=== PATIENT | male | born 1950 | race Caucasian/White ===

== ENCOUNTER 2019-05-27 07:06 | Observation (INO) | payer BC ==
[2019-05-25 13:18] LABS: BASOPHILS % 0.8 % (0.0-1.0); EOSINOPHILS # (AUTO) 0.2 (0.0-0.4); EOSINOPHILS % 3.7 % (0.0-6.0); HEMATOCRIT 40.7 % (38.2-49.6); HEMOGLOBIN 13.3 g/dL (14.0-18.0); LYMPHOCYTES # (AUTO) 1.8 (1.0-3.2); LYMPHOCYTES % 35.1 % (18.0-39.1); MEAN CORPUSCULAR HEMOGLOBIN 29.2 pg (28-32); MEAN CORPUSCULAR HGB CONC 32.7 g/dL (31-35); MEAN CORPUSCULAR VOLUME 89.3 fL (81-99); MONOCYTES # (AUTO) 0.5 (0.2-0.8); MONOCYTES % 9.2 % (4.4-11.3); NEUTROPHILS # (AUTO) 2.6 (2.1-6.9); NEUTROPHILS % 50.8 % (38.7-80.0); PLATELET COUNT 156 x10e3/uL (140-360); RED BLOOD COUNT 4.56 x10e6/uL (4.3-5.7); RED CELL DISTRIBUTION WIDTH 13.9 % (11.7-14.4)
[2019-05-25 13:38] LABS: ANION GAP 12.7 mmol/L (8-16); BLOOD UREA NITROGEN 15 mg/dL (7-26); BUN/CREATININE RATIO 21 (6-25); CALCIUM 9.4 mg/dL (8.4-10.2); CARBON DIOXIDE 25 mmol/L (22-29); CHLORIDE 104 mmol/L (98-107); CREATININE, SERUM 0.72 mg/dL (0.72-1.25); EST GLOMERULAR FILTRATION RATE > 60 ML/MIN (60-); GLUCOSE 87 mg/dL (74-118); POTASSIUM 3.7 mmol/L (3.5-5.1); SODIUM 138 mmol/L (136-145)
[2019-05-25 13:44] LABS: INR 1.03
[2019-05-25 13:45] LABS: PARTIAL THROMBOPLASTIN TIME 28.7 seconds (23.8-35.5)
--- NOTE | 2019-05-25 13:47 | Diagnostic Imaging Report ---
EXAM: CHEST 2 VIEWS DATE: 05/25/2019 12:43 PM INDICATION: Cervicalgia, preoperative evaluation COMPARISON: None FINDINGS: The trachea is midline. The lungs are symmetrically expanded without evidence for focal consolidation, pneumothorax, or significant pleural effusion. The cardiac silhouette is at the upper limits of normal for size. Mediastinal contours are unremarkable. No acute osseous abnormalities identified. The soft tissues are unremarkable. IMPRESSION: No acute cardiopulmonary process identified. Signed by: Dr. Jacky Monterroso MD on 05/25/2019 1:43 PM
[~2019-05-27] VITALS: Ht 167.6 cm; Wt 88.0 kg
[~2019-05-27 07:06] MED LIST: ASPIR 8181 MG PO; ATORVASTATIN CA20 MG PO; BACITRACIN 50,000 UNIT VIAL ONE; BUPIVACAINE 0.5%/EPI 30 ML SDV INJ ONE; DOXYCYCLINE HY100 MG PO; LISINOPRIL2.5 MG PO; PLAVIX75 MG PO; THROMBIN FOR SOLN 5,000 UNIT VIAL ONE; TOPROL XL25 MG PO
--- OUTSIDE RECORDS SUMMARY | 2019-05-27 07:08 | XMS REPORT | Clinical Summary ---
Author Author [facility] Organization [facility] Address Unknown Phone Unavailable Care Team Providers Care Payroll Processor Name Role Phone Alexandra Worrell MD PCP Allergies Comments Active Allergy Reactions Severity Noted Date Sulfa (Sulfonamide Rash Low 05/20/2008 Antibiotics) Medications End Date Status Medication Sig Dispensed Refills Start Date Active doxycycline (PERIOSTAT) TK 1 T PO 4 20 MG tablet BID 7 Active ketoconazole (NIZORAL) 2 Apply to face 0 % shampoo qdaily. 6 Leave on 5 min. Then rinse out. Please dispense largest. Active urea (CARMOL) 40 % cream Apply to 0 affected 6 areas BID PRN. Please dispense largest. Active betamethasone, augmented, Apply 0 (DIPROLENE) 0.05 % lotion topically 2 (two) times a day as needed. Active lutein 20 mg tablet Take 1 tablet 0 by mouth daily. Active atorvastatin (LIPITOR) 40 Take 1 tablet 90 tablet 0 MG tablet (40 mg total) 9 by mouth daily. Additional information Patient taking differently: 40 mg oral nightly, Reported on 02/25/2019 9:40 AM Active lisinopril Take 1 tablet 90 tablet 0 (PRINIVIL,ZESTRIL) 5 mg (5 mg total) 9 tablet by mouth every morning. Active atorvastatin (LIPITOR) 40 TAKE 1 TABLET 90 tablet 0 03/01/201 MG tablet BY MOUTH 9 EVERY DAY Active furosemide (LASIX) 20 mg TAKE 1 90 tablet 0 tablet TABLET(20 MG) 9 BY MOUTH DAILY Additional information Patient taking differently: TAKE 1 TABLET(20 MG) BY MOUTH DAILY PRN, Reported on 04/07/2019 10:55 AM Active potassium chloride TAKE 1 90 tablet 0 (KLOR-CON) 10 MEQ CR TABLET(10 9 tablet MEQ) BY MOUTH DAILY Additional information Patient taking differently: TAKE 1 TABLET(10 MEQ) BY MOUTH DAILY PRN, Reported on 04/07/2019 10:55 AM Active aspirin (ECOTRIN) 81 MG Take 81 mg by 0 enteric coated tablet mouth daily. Active clobetasol (TEMOVATE) Apply 0 0.05 % cream topically 2 (two) times a day as needed. Active vit A/C/E ac/ZnOx/cupric Take 1 tablet 0 oxide (EYE VITAMIN AND by mouth MINERALS ORAL) daily. Active clopidogrel (PLAVIX) 75 TAKE 1 TABLET 90 tablet 0 mg tablet BY MOUTH 9 EVERY DAY Active metoprolol succinate XL TAKE 1 TABLET 90 tablet 0 (TOPROL-XL) 25 mg 24 hr BY MOUTH 9 tablet DAILY 02/25/2019 Discontinued vardenafil (LEVITRA) 20 Take 20 mg by 0 MG tablet mouth. 6 04/07/2019 Discontinued ASPIRIN ORAL Take 81 mg by 0 mouth. 08/10/2018 Discontinued (Reorder) clopidogrel (PLAVIX) 75 Take 1 tablet 90 tablet 3 mg tablet (75 mg total) 7 by mouth daily. 04/07/2019 Discontinued FLUZONE HIGH-DOSE ADM 0.5ML IM 0 2017-18, PF, 180 mcg/0.5 UTD 7 mL syringe vaccine 02/25/2019 Discontinued meloxicam (MOBIC) 15 mg Take 15 mg by 0 tablet mouth daily. 04/07/2019 Discontinued fluocinolone-skin Apply 0 [id number] 0.01 % kit topically. 08/31/2018 Discontinued (Reorder) atorvastatin (LIPITOR) 40 TK 1 T PO QD 90 tablet 3 MG tablet 7 08/27/2018 Discontinued (Reorder) lisinopril TK 1 T PO QAM 90 tablet 3 (PRINIVIL,ZESTRIL) 5 mg 7 tablet 08/14/2018 Discontinued (Reorder) metoprolol succinate XL TK 1 T PO D 90 tablet 3 (TOPROL-XL) 25 mg 24 hr 7 tablet 11/09/2018 Discontinued (Reorder) clopidogrel (PLAVIX) 75 TAKE 1 90 tablet 0 mg tablet TABLET(75 MG) 8 BY MOUTH DAILY 11/11/2018 Discontinued (Reorder) metoprolol succinate XL TAKE 1 TABLET 90 tablet 0 (TOPROL-XL) 25 mg 24 hr BY MOUTH 8 tablet DAILY 11/28/2018 Discontinued (Reorder) lisinopril TAKE 1 TABLET 90 tablet 0 (PRINIVIL,ZESTRIL) 5 mg BY MOUTH 8 tablet EVERY MORNING 11/28/2018 Discontinued (Reorder) atorvastatin (LIPITOR) 40 TAKE 1 TABLET 90 tablet 0 MG tablet BY MOUTH 8 EVERY DAY 02/06/2019 Discontinued (Reorder) clopidogrel (PLAVIX) 75 TAKE 1 90 tablet 0 mg tablet TABLET(75 MG) 9 BY MOUTH DAILY 02/06/2019 Discontinued (Reorder) metoprolol succinate XL TAKE 1 TABLET 90 tablet 0 (TOPROL-XL) 25 mg 24 hr BY MOUTH 9 tablet DAILY 11/30/2018 Discontinued (Reorder) lisinopril TAKE 1 TABLET 90 tablet 0 (PRINIVIL,ZESTRIL) 5 mg BY MOUTH 9 tablet EVERY MORNING 11/30/2018 Discontinued (Reorder) atorvastatin (LIPITOR) 40 TAKE 1 TABLET 90 tablet 0 201 MG tablet BY MOUTH 9 EVERY DAY 05/13/2019 Discontinued (Reorder) clopidogrel (PLAVIX) 75 TAKE 1 90 tablet 0 mg tablet TABLET(75 MG) 9 BY MOUTH DAILY 05/13/2019 Discontinued (Reorder) metoprolol succinate XL TAKE 1 TABLET 90 tablet 0 (TOPROL-XL) 25 mg 24 hr BY MOUTH 9 tablet DAILY 03/26/2019 Discontinued (Reorder) furosemide (LASIX) 20 mg Take 1 tablet 30 tablet 0 tablet (20 mg total) 9 by mouth daily. 03/26/2019 Discontinued (Reorder) potassium chloride Take 1 tablet 30 tablet 0 (KLOR-CON) 10 MEQ CR (10 mEq 9 tablet total) by mouth daily. 04/07/2019 Discontinued lisinopril TAKE 1 TABLET 90 tablet 0 (PRINIVIL,ZESTRIL) 5 mg BY MOUTH 9 tablet EVERY MORNING Active Problems Problem Noted Date H/O acute myocardial infarction 02/09/2019 Plantar fasciitis 09/03/2017 Overview: Patient has that flairs on his L foot. Saw a dental insurance biller--got injections, NSAIDS, special ointments including lidocaine, until it's under control Wears an insert. L ast Assessment & Plan: Continue current care Given some stretches to try as he tries to get back to exercise. Prostate cancer screening 09/03/2017 Stented coronary artery 08/12/2017 Essential hypertension 06/20/2015 Overview: Never really had high blood pressure Patient has gained about 20 lbs lately due to not exercising with plantar fasciitis. L ast Assessment & Plan: Hypertension is at goal. Continue current treatment regimen. Blood pressure will be reassessed at the next regular appointment. Macular pucker 05/04/2015 ROBBIN (obstructive sleep apnea) 08/26/2014 Overview: Uses CPAP Plans to make an appointment with a pulmonary doctor in [place] Posterior vitreous detachment 08/09/2014 IFG (impaired fasting glucose) 08/09/2014 Overview: Last a1c was 5.7 L ast Assessment & Plan: Recheck labs today Horseshoe tear of retina 07/26/2014 Macular degeneration, dry 07/01/2014 Nuclear cataract 07/01/2014 Corporo-venous occlusive erectile dysfunction 08/12/2011 Overview: Patient is having problems with levitra--now is not working. 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 Typically under control On betamethasone, ketoconazole shampoo prn. Urea as well CAD (coronary artery disease), morongo coronary artery 06/26/2010 Overview: Overview: S/P CA with 2.5 mm BMS to OM in 2000. Pure hypertriglyceridemia 06/26/2010 Bilateral carpal tunnel syndrome Resolved Problems Problem Noted Date Resolved Date H/O acute myocardial infarction 03/29/2019 04/07/2019 SOB (shortness of breath) 02/09/2019 04/07/2019 Coronary artery disease involving morongo heart with angina pectoris 02/09/2019 04/07/2019 Overview: Added automatically from request for surgery [id number] Encounters Care Team Description Date Type Specialty Alexandra Worrell MD 05/20/2019 Telephone Internal Medicine Miles Martinez MD Med Refill 05/13/2019 Refill Cardiology Alexandra Worrell MD 05/11/2019 Telephone Internal Medicine Ata Stewart MA 04/29/2019 Telephone Internal Medicine Ata Stewart MA Osteoarthritis of spine with radiculopathy, cervical region (Primary Dx); Neck pain; Numbness and tingling 04/29/2019 Orders Only Internal Medicine Ata Stewart MA 04/20/2019 Orders Only Internal Medicine Alexandra Worrell MD Essential hypertension; Prostate cancer screening; IFG (impaired fasting glucose); Pure hypertriglyceridemia 04/07/2019 Lab Lab Alexandra Worrell MD Essential hypertension (Primary Dx); IFG (impaired fasting glucose); ROBBIN (obstructive sleep apnea); Coronary artery disease involving morongo coronary artery of morongo heart without angina pectoris; Prostate cancer screening; Pure hypertriglyceridemia; Numbness and tingling; Neck pain 04/07/2019 Office Visit Internal Medicine Miles Martinez MD Coronary artery disease involving morongo coronary artery of morongo heart without angina pectoris (Primary Dx); Stented coronary artery; H/O acute myocardial infarction 03/29/2019 Office Visit Cardiology Miles Martinez MD Med Refill 03/26/2019 Refill Cardiology Miles Martinez MD Med Refill 02/27/2019 Refill Cardiology Nae Pena MA Med Refill 02/26/2019 Refill Cardiology Nae Pena MA Med Refill 02/26/2019 Refill Cardiology Alexandra Worrell MD 02/26/2019 Telephone Family Medicine Miles Martinez MD Selective coronary angiography [07526 (CPT)] 02/25/2019 Surgery Procedural Cardiology Miles Martinez MD Coronary artery disease involving morongo heart with angina pectoris, unspecified vessel or lesion type (HCC); SOB (shortness of breath) 02/25/2019 Hospital Procedural Cardiology Encounter Miles Martinez MD Coronary artery disease involving morongo heart with angina pectoris, unspecified vessel or lesion type (HCC); SOB (shortness of breath) 02/23/2019 Lab Lab Miles Martinez MD Coronary artery disease involving morongo heart with angina pectoris, unspecified vessel or lesion type (HCC); SOB (shortness of breath) 02/17/2019 Lab Lab Miles Martinez MD Coronary artery disease involving morongo coronary artery of morongo heart without angina pectoris (Primary Dx); Essential hypertension; SOB (shortness of breath); Stented coronary artery; H/O acute myocardial infarction 02/09/2019 Office Visit Cardiology Nae Pena MA Coronary artery disease involving morongo heart with angina pectoris, unspecified vessel or lesion type (HCC) (Primary Dx); SOB (shortness of breath) 02/09/2019 Orders Only Cardiology Miles Martinez MD Med Refill 02/06/2019 Refill Cardiology Nae Pena MA Med Refill 11/30/2018 Refill Cardiology Miles Martinez MD Med Refill 11/28/2018 Refill Cardiology Miles Matrinez MD Med Refill 11/11/2018 Refill Cardiology Miles Martinez MD Med Refill 11/09/2018 Refill Cardiology Miles Martinez MD Med Refill 08/31/2018 Refill Cardiology Miles Martinez MD Med Refill 08/27/2018 Refill Cardiology Miles Martinez MD Med Refill 08/14/2018 Refill Cardiology Miles Martinez MD Med Refill 08/10/2018 Refill Cardiology after 05/26/2018 Immunizations Name Administration Dates Next Due FLUZONE HIGH-DOSE PF 08/13/2017, 06/20/2015, 06/29/2014 INFLUENZA QUAD 06/27/2016, 06/12/2011 Pneumococcal Conjugate 06/20/2015 13-Valent Pneumococcal 08/17/2013 Polysaccharide Tdap 05/21/2008 Zoster 08/09/2014 Family History Medical History Relation Name Comments Heart attack Father Leukemia Father Heart attack Maternal Grandfather Heart attack Paternal Aunt Kidney failure Paternal Aunt Heart attack Paternal Grandfather Heart attack Paternal Uncle Heart attack Paternal Uncle Kidney failure Sister Relation Name Status Comments Father Maternal Grandfather Mother Paternal Aunt Paternal Aunt Paternal Grandfather Paternal Uncle Paternal Uncle Sister Social History Date Tobacco Use Types Packs/Day Years Used Quit: 09/29/1993 Former Smoker Cigarettes 1.5 41 Smokeless Tobacco: Never Used Tobacco Cessation: Counseling Given: No Drinks/Week oz/Week Comments Alcohol Use beer occasionally, mixed drink occasionally; maybe 1-2 times month No Sex Assigned at Date Recorded Male 04/13/2019 8:47 PM CDT Industry Job Start Date Occupation Not on file Not on file Not on file Travel End Travel History Travel Start No recent travel history available. Last Filed Vital Signs Reading Time Taken Comments Vital Sign 124/64 04/07/2019 10:49 AM CDT Blood Pressure 49 04/07/2019 10:49 AM CDT Pulse 36.6 C (97.9 F) 04/07/2019 10:49 AM CDT Temperature 16 02/25/2019 6:00 PM CDT Respiratory Rate 97% 04/07/2019 10:49 AM CDT Oxygen Saturation - - Inhaled Oxygen Concentration 90.7 kg (200 lb) 05/06/2019 1:24 PM CDT Weight 167.6 cm (5' 6") 05/06/2019 1:24 PM CDT Height 32.28 05/06/2019 1:24 PM CDT Body Mass Index Plan of Treatment Care Team Description Date Type Specialty Miles Martinez MD [address] [address] 09/13/2019 Office Visit Cardiology Health Maintenance Due Date Last Done Comments SHINGLES VACCINES (#1) 1998 INFLUENZA VACCINE 04/29/2019 08/13/2017, 06/27/2016, 06/20/2015, Additional history exists COLONOSCOPY SCREENING 08/17/2025 08/17/2015 65+ PNEUMOCOCCAL VACCINE Completed 06/20/2015, 08/17/2013 Procedures Comments Procedure Name Priority Date/Time Associated Diagnosis MRI CERVICAL SPINE W WO Routine 05/06/2019 Osteoarthritis of spine CONTRAST 1:54 PM CDT with radiculopathy, cervical region Neck pain Numbness and tingling EMG Routine 04/14/2019 Numbness and tingling 1:12 PM CDT XR CERVICAL SPINE Routine 04/07/2019 Numbness and tingling COMPLETE 2:03 PM CDT Neck pain TSH REFLEX TO T4F Routine 04/07/2019 Essential hypertension 12:15 PM CDT LIPID PANEL Routine 04/07/2019 Pure hypertriglyceridemia 12:15 PM CDT HEMOGLOBIN A1C Routine 04/07/2019 IFG (impaired fasting 12:15 PM CDT glucose) PROSTATE SPECIFIC ANTIGEN Routine 04/07/2019 Prostate cancer screening 12:15 PM CDT CBC WITH PLATELET AND Routine 04/07/2019 Essential hypertension DIFFERENTIAL 12:15 PM CDT CREATININE LEVEL Routine 04/07/2019 Essential hypertension 12:15 PM CDT CV SELECTIVE CORONARY Routine 02/25/2019 Coronary artery disease ANGIOGRAPHY 3:30 PM CDT involving morongo heart with angina pectoris, unspecified vessel or lesion type (HCC) SOB (shortness of breath) CBC WITH PLATELET AND Routine 02/23/2019 Coronary artery disease DIFFERENTIAL 4:56 PM CDT involving morongo heart with angina pectoris, unspecified vessel or lesion type (HCC) SOB (shortness of breath) PROTHROMBIN TIME WITH INR Routine 02/23/2019 Coronary artery disease 4:56 PM CDT involving morongo heart with angina pectoris, unspecified vessel or lesion type (HCC) SOB (shortness of breath) COMPREHENSIVE METABOLIC Routine 02/23/2019 Coronary artery disease PANEL 4:56 PM CDT involving morongo heart with angina pectoris, unspecified vessel or lesion type (HCC) SOB (shortness of breath) ECHOCARDIOGRAM 2D Routine 02/17/2019 Coronary artery disease COMPLETE W MMODE SPECTRAL 4:59 PM CDT involving morongo coronary COLOR DOPPLER (12406) artery of morongo heart without angina pectoris SOB (shortness of breath) ECG 12-LEAD Routine 02/09/2019 Coronary artery disease 8:46 AM CDT involving morongo coronary artery of morongo heart without angina pectoris Essential hypertension SOB (shortness of breath) after 05/26/2018 Results * MRI Cervical Spine W Wo Contrast (05/06/2019 1:54 PM CDT) Specimen Narrative Performed At [facility] EXAMINATION: MRI CERVICAL SPINE W WO CONTRAST CLINICAL HISTORY: M47.22 Other spondylosis with radiculopathycervical region, M54.2 Cervicalgia, neck painnumbness tingling COMPARISON:C-spine radiographs 04/07/2019. TECHNIQUE: Multiplanar multisequence MRI examination was performed of the cervical spine with and without IV contrast. FINDINGS: There is straightening of the cervical spine, however no subluxation. No abnormal marrow edema. Vertebral body and intervertebral disc heights are preserved. No developmental canal narrowing. No suspicious osseous lesion. No degenerative marrow changes. The cervicomedullary junction is normal in appearance. No spinal cord signal abnormality. No pathologic enhancement identified to suggest active demyelination. No prevertebral edema or neck mass identified. No cervical lymphadenopathy identified. Major vascular flow voids are present. Left vertebral artery is dominant and right vertebral artery is markedly diminutive in caliber. Axial images through the disc spaces demonstrate the following: C1-C2: No significant spinal canal stenosis. C2-C3: No significant posterior disc disease, spinal canal, subarticular zone, or neural foraminal stenosis. C3-C4: Mild right neural foraminal narrowing secondary to degenerative uncovertebral hypertrophy. No significant posterior disc disease, spinal canal, subarticular zone, or left neural foraminal stenosis. C4-C5: No significant posterior disc disease, spinal canal, subarticular zone, or neural foraminal stenosis. C5-C6: Marked left neural foraminal stenosis secondary to degenerative uncovertebral and facet arthrosis, image 26 of series 6. No significant posterior disc disease, spinal canal, subarticular zone, or right neural foraminal stenosis. C6-C7: Mild intervertebral disc height loss with circumflex ventral disc bulge which indents the ventral thecal sac and results in moderate to marked bilateral neural foraminal stenosis, image 30 of series 6. Central canal is patent. C7-T1: No significant posterior disc disease, spinal canal, subarticular zone, or neural foraminal stenosis. IMPRESSION: Multifocal neural foraminal stenosis as detailed above, however no significant spinal canal stenosis identified. [facility]-[id number] Procedure Note Hm Interface, Radiology Results - 05/06/2019 3:09 PM CDT EXAMINATION: MRI CERVICAL SPINE W WO CONTRAST CLINICAL HISTORY: M47.22 Other spondylosis with radiculopathy cervical region, M54.2 Cervicalgia, neck pain numbness tingling COMPARISON: C-spine radiographs 04/07/2019. TECHNIQUE: Multiplanar multisequence MRI examination was performed of the cervical spine with and without IV contrast. FINDINGS: There is straightening of the cervical spine, however no subluxation. No abnormal marrow edema. Vertebral body and intervertebral disc heights are preserved. No developmental canal narrowing. No suspicious osseous lesion. No degenerative marrow changes. The cervicomedullary junction is normal in appearance. No spinal cord signal abnormality. No pathologic enhancement identified to suggest active demyelination. No prevertebral edema or neck mass identified. No cervical lymphadenopathy identified. Major vascular flow voids are present. Left vertebral artery is dominant and right vertebral artery is markedly diminutive in caliber. Axial images through the disc spaces demonstrate the following: C1-C2: No significant spinal canal stenosis. C2-C3: No significant posterior disc disease, spinal canal, subarticular zone, or neural foraminal stenosis. C3-C4: Mild right neural foraminal narrowing secondary to degenerative uncovertebral hypertrophy. No significant posterior disc disease, spinal canal, subarticular zone, or left neural foraminal stenosis. C4-C5: No significant posterior disc disease, spinal canal, subarticular zone, or neural foraminal stenosis. C5-C6: Marked left neural foraminal stenosis secondary to degenerative uncovertebral and facet arthrosis, image 26 of series 6. No significant posterior disc disease, spinal canal, subarticular zone, or right neural foraminal stenosis. C6-C7: Mild intervertebral disc height loss with circumflex ventral disc bulge which indents the ventral thecal sac and results in moderate to marked bilateral neural foraminal stenosis, image 30 of series 6. Central canal is patent. C7-T1: No significant posterior disc disease, spinal canal, subarticular zone, or neural foraminal stenosis. IMPRESSION: Multifocal neural foraminal stenosis as detailed above, however no significant spinal canal stenosis identified. [facility]-[id number] Performing Organization Address City/State/Zipcode Phone Number [facility] [address] [place] [address] * EMG general request (04/14/2019 1:12 PM CDT) Impressions Performed At Patient has chronic carpal tunnel complaints bilaterally and comes in for an EMG study of both arms 1) Motor conductions are normal.Mild decreased compound motor action potential of the right median nerve.Mild slowing of the left median conduction. 2) F Wave responses are normal except upper limits for the left median response and right ulnar response 3) Sensory responses show severe delay of right median palmar latency and moderate on the left.Marked decreased sensory nerve action potentials bilaterally for the median nerve.Absent left ulnar distal latency. 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 Mikaela Akbar M.D. [facility] Department of Neurology [facility] [address] [place], [place] [id number] Office: [phone] Narrative Performed At NERVE CONDUCTION AND ELECTROMYOGRAPHY REPORT [facility]-[address]th Floor; [place], [place] [address]; Name: Maurizio Mosquera Date of Procedure: 04/14/19 Sex: male Date of :1950 Referring Physician: MD Stacie Ht: 5 foot 6wt: 200temp: 34/34 Nerve Conduction(Latencies in msec, Amplitudes uV, Distance cm, Velocity M/Sec) Right Motor Nerves Dist. Lat. Prox lat. D. amp. P. Amp.Dist. Velocity Right Median3.88.57.8 7.323 50 Right Ulnar (below elb) 2.76.47.8 6.319.5 52 Right Ulnar (across elb) 9.1 6.312.5 47 Right Radial2.37.04.8 4.023 48 Right Median F Wave 31.1 Right Ulnar F Wave 32.8 Right Sensory Nerves Dist. Lat. Prox lat. Dist. amp. Prox Amp. Distance Velocity Right Median Palmar 3.2* 10 8.0 Right Median Digital 4.2 7 13.0 Right Ulnar2.8 11 11.0 Right Super. Radial 2.8 17 10.0 Left Motor Nerves Dist. Lat. Prox lat. D. amp. P. Amp.Dist. Velocity Left Median3.88.38.5 5.821.4 47 Left Ulnar (below elb) 2.95.36.8 612.8 55 Left Ulnar (across elb) 7.5 6.312 53 Left Radial3.37.46.3 5.925 60 Left Median F Wave 32.3 Left Ulnar F Wave 30.7 Left Sensory Nerves Dist. Lat. Prox lat. Dist. amp. Prox Amp. Distance Velocity Left Median Palmar 2.6* 6 8.0 Left Median Digital 3.5 9 13.0 Left [id number] Left Super. Radial 2.3 27 10.0 Electromyography (Motor Unit in mV; H=High; L=Low; P=Polyphasic; NS=Non-specific) Right ArmFibs. Pos. Waves Fasc. PolyphasiaMotor UnitsRecruitment Deltoid wnl wnlwnl wnlwnlwnl Biceps wnl wnlwnl wnlwnlwnl Triceps wnl wnlwnl wnlwnlwnl Brachioradialis wnl wnlwnl wnlwnlwnl lst D. Interosseous wnl wnlwnl wnlwnlwnl Abd. Pollicus b. wnl wnlwnl wnlwnlwnl Left ArmFibs. Pos. Waves Fasc. PolyphasiaMotor UnitsRecruitment Deltoid wnl wnlwnl wnlwnlwnl Biceps wnl wnlwnl wnlwnlwnl Triceps wnl wnlwnl wnlwnlwnl Brachioradialis wnl wnlwnl wnlwnlwnl lst D. Interosseous wnl wnlwnl wnlwnlwnl * XR Cervical Spine Complete (04/07/2019 2:03 PM CDT) Specimen Narrative Performed At EXAMINATION:XR CERVICAL SPINE COMPLETE [facility] CLINICAL HISTORY:R20.0 Anesthesia of skin, R20.2 Paresthesia of skin, neck pain with radicular symptomshand numbness COMPARISON:None. IMPRESSION: 5 views of the cervical spine were obtained. Straightening of the cervical spine. Convexity of the cervical thoracic junction to the left. Mild to moderate disc space narrowing and endplate degenerative changes at C6-7. No displaced fractures, aggressive bone lesions or prevertebral soft tissue swelling. Bilateral bony foraminal narrowing on the oblique views at C5-6 and C6-7. [facility]-[id number] Procedure Note Hm Interface, Radiology Results Incoming - 04/07/2019 2:17 PM CDT EXAMINATION: XR CERVICAL SPINE COMPLETE CLINICAL HISTORY: R20.0 Anesthesia of skin, R20.2 Paresthesia of skin, neck pain with radicular symptoms hand numbness COMPARISON: None. IMPRESSION: 5 views of the cervical spine were obtained. Straightening of the cervical spine. Convexity of the cervical thoracic junction to the left. Mild to moderate disc space narrowing and endplate degenerative changes at C6-7. No displaced fractures, aggressive bone lesions or prevertebral soft tissue swelling. Bilateral bony foraminal narrowing on the oblique views at C5-6 and C6-7. [facility]-[id number] Performing Organization Address City/State/Zipcode Phone Number [facility] [address] [place] [address] * TSH reflex to T4 (04/07/2019 12:15 PM CDT) TSH reflex to 1.60 0.40 - 4.50 mIU/L [employer] [place] Specimen Blood Resulting Agency Comment Performing Organization Information: Site ID: [id number] Address: [address] [place] [id number] Director: Mikaela Lopez Performing Organization Address City/State/[facility] Phone Number [employer] [place] [phone] * CBC with platelet and differential (04/07/2019 12:15 PM CDT) Only the most recent of 2 results within the time period is included. [facility] WBC 5.4 3.8 - 10.8 [facility] [employer] RBC 4.58 4.20 - 5.80 [facility] Million/uL [facility] [place] HGB 13.3 13.2 - 17.1 g/dL [facility] [place] HCT 40.8 38.5 - 50.0 % [facility] [place] MCV 89.1 80.0 - 100.0 fL [facility] [place] MCH 29.0 27.0 - 33.0 pg [facility] [place] MCHC 32.6 32.0 - 36.0 g/dL [employer] [place] RDW 13.5 11.0 - 15.0 % [employer] [place] Platelet count 163 140 - 400 [facility] Thousand/uL [facility] MPV 10.9 7.5 - 12.5 fL [employer] [place] Neutrophils, 3,310 1,500 - 7,800 [facility] absolute cells/uL [facility] [place] Lymphocytes, 1,388 850 - 3,900 cells/uL [facility] absolute [facility] [place] Monocytes, 464 200 - 950 cells/uL [facility] absolute [facility] [place] Eosinophils, 200 15 - 500 cells/uL [facility] absolute [facility] [place] Basophils, 38 0 - 200 cells/uL [facility] absolute [facility] [place] Neutrophils 61.3 % [facility] [place] Lymphocytes 25.7 % [facility] [place] Monocytes 8.6 % [facility] [place] Eosinophils 3.7 % [facility] [place] Basophils + RC 0.7 % [facility] [place] Specimen Blood Resulting Agency Comment Performing Organization Information: Site ID: A Name: [facility] Address: [address] [place] [address] Director: Mikaela Lopez Performing Organization Address [facility] Phone Number [facility] [place] [address] * Prostate specific antigen (04/07/2019 12:15 PM CDT) Pathologist [facility] [place] PSA 1.8 < OR=4.0 ng/mL [facility] Comment: DIAGNOSTICS The total PSA value from this [place] assay system is standardized against the WHO standard. The test result will be approximately 20% lower when compared to the equimolar-standardized total PSA (Lillian Bashir). Comparison of serial PSA results should be interpreted with this fact in mind. This test was performed using the Siemens chemiluminescent method. Values obtained from different assay methods cannot be used interchangeably. PSA levels, regardless of value, should not be interpreted as absolute evidence of the presence or absence of disease. Specimen Blood Resulting Agency Comment Performing Organization Information: Site ID: RGA Name: [facility] Address: [address] [place] [phone] Director: Mikaela Lopez Performing Organization Address [facility] Phone Number [facility] [place] [address] * Hemoglobin A1c (04/07/2019 12:15 PM CDT) Pathologist [facility] [place] Hemoglobin A1C 5.5 <5.7 % of total Hgb [facility] Comment: DIAGNOSTICS For the purpose of screening [place] for the presence of diabetes: <5.7% Consistent with the absence of diabetes 5.7-6.4%Consistent with increased risk for diabetes (predi abetes) > or=6.5%Consistent with diabetes This assay result is consistent with a decreased risk of diabetes. Currently, no consensus exists regarding use of hemoglobin A1c for diagnosis of diabetes in children. According to [place] Diabetes Association (ADA) guidelines, hemoglobin A1c <7.0% represents optimal control in non- diabetic patients. Different metrics may apply to specific patient populations. Standards of Medical Care in Diabetes(ADA). Specimen Blood Resulting Agency Comment Performing Organization Information: Site ID: [facility] Name: [facility] Address: [address] [place] [phone] Director: Mikaela Lopez Performing Organization Address City/[facility] [place] [place] [address] * Creatinine level (04/07/2019 12:15 PM CDT) Creatinine 0.80 0.70 - 1.18 mg/dL [facility] Comment: DIAGNOSTICS For patients >49 years of age, [place] the reference limit for Creatinine is approximately 13% higher for people identified as -Indian. EGFR Non-Afr. 91 > OR=60 [facility] Indian mL/min/1.73m2 [facility] EGFR 105 > OR=60 [facility] Indian mL/min/1.73m2 [facility] Specimen Blood Resulting Agency Comment Performing Organization Information: Site ID: [facility] Name: [facility] Address: [address] [place] [id number] Director: Mikaela Lopez Performing Organization Address [facility] [place] [address] * Lipid panel (04/07/2019 12:15 PM CDT) Cholesterol, 126 <200 mg/dL [facility] total [facility] HDL cholesterol 34 (L) >40 mg/dL [facility] [place] Triglycerides 139 <150 mg/dL [facility] LDL cholesterol 70 mg/dL (calc) [facility] calculated Comment: DIAGNOSTICS Reference range: <100 [place] Desirable range <100 mg/dL for primary prevention; <70 mg/dL for patients with CHD or diabetic patients with > or=2 CHD risk factors. LDL-C is now calculated using the Mabel calculation, which is a validated novel method providing better accuracy than the Friedewald equation in the estimation of LDL-C. Yovani DAVID et al. ARMANDO. 2013;310(19): 9762-3839 (http://education.Mediamind.Netsonda Research/faq/SIE192) Cholesterol/HDL 3.7 <5.0 (calc) [employer] [place] Non-HDL 92 <130 mg/dL (calc) [facility] cholesterol Comment: DIAGNOSTICS For patients with diabetes [place] plus 1 major ASCVD risk factor, treating to a non-HDL-C goal of <100 mg/dL (LDL-C of <70 mg/dL) is considered a therapeutic option. Specimen Blood Resulting Agency Comment Performing Organization Information: Site ID: RGA Name: [facility] Address: [address] [place] [phone] Director: Mikaela Lopez Performing Organization Address City/State/[facility] Phone Number [employer] [place] [phone] [place] [address] * Cv lab rn procedure (02/25/2019 3:30 PM CDT) Specimen Narrative Performed At [facility] Attending: Dr. Miles Martinez Fellow: Dr. Gage Hurt EQUIPMENT/ANTICOAGULATION: Right Common Femoral Artery 4Fr Arterial Sheath JL4 and 3DRC Diagnostic Catheter PROCEDURAL DETAILS: Moderate conscious sedation was administered from 3:16pm to 3:30pm for a total of 14min.The patient s right groin was prepped and draped in sterile fashion. The site was anesthetized with lidocaine.The right [employer] SCIENTIST was cannulated with a needle, and a 4Fr arterial sheath was placed over the wire into the femoral artery. JL4 and then 3DRC diagnostic catheters were introduced into the sheath and appropriate angiographic views were obtained of the morongo left and right coronary arteries.The diagnostic catheter was then removed and the sheath was capped and flushed. HEMOSTASIS: Manual Pressure PLAN: 1. Continue ASA 81mg daily 2. Continue cardiomyopathy medications (ACEi/BB) 3. Continue cardiac medical therapy and aggressive risk factor modification 4. Starting lasix 20mg PO qD and KCl 10 mEq PO qD Performing Organization Address City/State/Zipcode Phone Number [facility] [address] [place] [address] * Prothrombin time with INR (02/23/2019 4:56 PM CDT) INR 1.1 [facility] Comment: DIAGNOSTICS Reference [place] Range 0.9-1.1 Moderate-intensity Warfarin Therapy 2.0-3.0 Higher-intensity Warfarin Therapy 3.0-4.0 Prothrombin 11.3 9.0 - 11.5 sec [facility] time Comment: DIAGNOSTICS For more information on this [place] test, go to: http://education.iLumen.com/faq/JDU153 Specimen Blood Resulting Agency Comment Performing Organization Information: Site ID: RGA Name: [facility] Address: [address] [place] [phone] Director: Mikaela Lopez Performing Organization Address City/State/Zipcode Phone Number [facility] [employer] [place] [address] [place] [phone] * Comprehensive metabolic panel (02/23/2019 4:56 PM CDT) [facility] Glucose 82 65 - 99 mg/dL [facility] Comment: DIAGNOSTICS Fasting [place] reference interval BUN, whole 17 7 - 25 mg/dL [facility] blood [facility] [place] Creatinine 0.92 0.70 - 1.18 mg/dL [facility] Comment: DIAGNOSTICS For patients >49 years of age, [place] the reference limit for Creatinine is approximately 13% higher for people identified as -Indian. EGFR Non-Afr. 84 > OR=60 [facility] Indian mL/min/1.73m2 [facility] [place] EGFR 97 > OR=60 [facility] Indian mL/min/1.73m2 [facility] [place] BUN/creatinine NOT APPLICABLE 6 - 22 (calc) [facility] ratio [facility] [place] Sodium 141 135 - 146 mmol/L [facility] [place] Potassium 4.5 3.5 - 5.3 mmol/L [facility] [place] Chloride 106 98 - 110 mmol/L [facility] [place] CO2 28 20 - 32 mmol/L [facility] [place] Calcium 9.1 8.6 - 10.3 mg/dL [facility] [place] Protein 6.8 6.1 - 8.1 g/dL [facility] [place] Albumin, S 4.4 3.6 - 5.1 g/dL [facility] [place] Globulin, total 2.4 1.9 - 3.7 g/dL [facility] (calc) [facility]NOST[facility] [place] Albumin/globuli 1.8 1.0 - 2.5 (calc) [facility] n ratio [facility] [place] Total bilirubin 0.5 0.2 - 1.2 mg/dL [facility] [place] Alkaline 51 40 - 115 U/L [facility] phosphatase [facility] [place] AST 20 10 - 35 U/L [facility] [place] ALT 23 9 - 46 U/L [employer] [place] Specimen Blood Resulting Agency Comment Performing Organization Information: Site ID: RGA Name: [facility] Address: [address] [place] [address] Director: Mikaela Lopez Performing Organization Address City/State/Zipcode Phone Number [facility]USIE WIS[facility] [place] [address] [place], [place] [phone] * Echocardiogram complete w contrast and 3D if needed (02/17/2019 4:59 PM CDT) Specimen Narrative Performed At [facility] Ech[facility] Report Pat.Name:MAURIZIO MOSQUERA Pat.ID:[id number] St.Date: 02/17/2019 Refer.MD:MILES MARTINEZ MD Exam Time: 4:07:00 PMStudy Type:Routine Echo Height:66inWeight:200lb BSA: 2 o9MXIZvw:1950,68Y Sex: MALEBP:139/59 HR:55 bpm Sonogrphr: PATRICIA Nova FASE Pat. Stat.:OutpatientRoom:[place] Study Status:Final Echo Event ID:[id number] Order ID:[id number] Reason for Study:SOB, suspected cardiac etiology Procedures:2D Echo, Colorflow Doppler Race:C SUMMARY: LV size is qqrcnvoc-pz-rjfplkww enlarged. Overall wall motion is mildly hypokinetic. EF=47%. Mild mitral regurgitation. Diastolic dysfunction Grade I (Mild): Impaired relaxation with normal LV filling pressures. Estimated PA systolic pressure is 32 mmHg, assuming a mean RAP of 5 mmHg. FINDINGS: LV: LV size is dtbwuxlp-aj-tfauakdg enlarged. LV EF is mildly depressed.Overall wall motion is mildly hypokinetic. EF= 47%. RV: RV size is normal. RV systolic function is normal. LA: LA volume is mildly enlarged. RA: RA size is normal. AO: Aortic root diameter is normal. TIKA: No pericardial effusion. AV: No structural AV abnormalities noted. MV: No structural MV abnormalities noted. Mild mitral regurgitation. PV: No structural PV abnormalities noted. TV: No structural TV abnormalities noted. Mild tricuspid regurgitation Cota: Diastolic dysfunction Grade I (Mild): Impaired relaxation withnormal LV filling pressures. Other:Estimated PA systolic pressure is 32 mmHg, assuming a mean RAPof 5 mmHg. MEASUREMENTS: 2D Parasternal [place] LVOT 2.4 cmLA Ds4.8 cm LVIDd6.6 cmIndex3.3 cm/m Ao An2.4 cm LVIDs5.1 cmAo Rtd 4 cm Index2 cm/m LV%fs 22.9 % LV Hslh281.7 g(122-174) IVSd 1.1 cmRWT0.2 LVPWd0.7 cm LV EF SinglePlane LV Ad 48.7 cm2(9.5-22.3) XNADQ548.6 ml Index56.3 ml/m PWRYJ267.8 ml (65-193) Zobrg039.4 ml/m LV SV 98.2 ml LV As 31.9 cm2(4-11.6) LV EF 46.6 %(63-77) LA Sng Plane LA Area 22.7 cm2(8.8-23.4) LA Vol72.5 ml Index36.2 ml/m LA LngAx 6 cm DOPPLER LVOT For Flow LVOT Area4.5 cm2 LVOT SV 89.7 ml LVOTpkVel 84.6 cm/sHR48.7 bpm LVOTpkPG 2.9 mmHgLVOT CO4.4 l/min LVOTmnPG 1.6 mmHgLVOT CI2.2 l/m/m2 LVOT TVI19.8 cm Signed 02/18/2019 05:59 PM Cirilo Klein M.D. Procedure Note Interface, Radiology Results In - 02/18/2019 5:59 PM CDT [facility] Echocardiography Report Pat.Name: MAURIZIO MOSQUERA Pat.ID: [id number] St.Date: 02/17/2019 Refer.MD: MILES MARTINEZ MD Exam Time: 4:07:00 PM Study Type:Routine Echo Height: 66in Weight: 200lb BSA: 2 m2 Age: 10 1950,68Y Sex: MALE BP: 139/59 HR: 55 bpm Sonogrphr: PATRICIA Nova FASE Pat. Stat.:Outpatient Room: [place] Study Status:Final Echo Event ID:[id number] Order ID: [id number] Reason for Study:SOB, suspected cardiac etiology Procedures:2D Echo, Colorflow Doppler Race: C SUMMARY: LV size is xvkfwnra-sn-wninmgll enlarged. Overall wall motion is mildly hypokinetic. EF=47%. Mild mitral regurgitation. Diastolic dysfunction Grade I (Mild): Impaired relaxation with normal LV filling pressures. Estimated PA systolic pressure is 32 mmHg, assuming a mean RAP of 5 mmHg. FINDINGS: LV: LV size is hgdcvthr-ls-ozkiyceq enlarged. LV EF is mildly depressed. Overall wall motion is mildly hypokinetic. EF= 47%. RV: RV size is normal. RV systolic function is normal. LA: LA volume is mildly enlarged. RA: RA size is normal. AO: Aortic root diameter is normal. TIKA: No pericardial effusion. AV: No structural AV abnormalities noted. MV: No structural MV abnormalities noted. Mild mitral regurgitation. PV: No structural PV abnormalities noted. TV: No structural TV abnormalities noted. Mild tricuspid regurgitation Cota: Diastolic dysfunction Grade I (Mild): Impaired relaxation with normal LV filling pressures. Other: Estimated PA systolic pressure is 32 mmHg, assuming a mean RAP of 5 mmHg. MEASUREMENTS: 2D Parasternal [place] LVOT 2.4 cm LA Ds 4.8 cm LVIDd 6.6 cm Index 3.3 cm/m Ao An 2.4 cm LVIDs 5.1 cm Ao Rtd 4 cm Index 2 cm/m LV%fs 22.9 % LV Mass 266.7 g (122-174) IVSd 1.1 cm RWT 0.2 LVPWd 0.7 cm LV EF SinglePlane LV Ad 48.7 cm2 (9.5-22.3) LVESV 112.6 ml Index 56.3 ml/m LVEDV 210.8 ml (65-193) Index 105.4 ml/m LV SV 98.2 ml LV As 31.9 cm2 (4-11.6) LV EF 46.6 % (63-77) LA Sng Plane LA Area 22.7 cm2 (8.8-23.4) LA Vol 72.5 ml Index 36.2 ml/m LA LngAx 6 cm DOPPLER LVOT For Flow LVOT Area 4.5 cm2 LVOT SV 89.7 ml LVOTpkVel 84.6 cm/s HR 48.7 bpm LVOTpkPG 2.9 mmHg LVOT CO 4.4 l/min LVOTmnPG 1.6 mmHg LVOT CI 2.2 l/m/m2 LVOT TVI 19.8 cm Signed 02/18/2019 05:59 PM Cirilo Klein M.D. Performing Organization Address City/State/Zipcode Phone Number [facility] [address] [place] [address] * ECG 12 lead (02/09/2019 8:46 AM CDT) Ventricular 52 [facility] rate Atrial rate 52 [facility] PA interval 160 [facility] QRSD interval 98 [facility] QT interval 464 [facility] QTC interval 431 [facility] P axis 1 53 [facility] QRS axis 1 -18 [facility] T wave axis 12 [facility] EKG impression Sinus bradycardia with [facility] occasional premature ventricular complexes-Minimal voltage criteria for LVH, may be normal variant-Borderline ECG-In automated comparison with ECG of 12-AUG-2017 11:16,-premature ventricular complexes are now present- Specimen Narrative Performed At Performing Organization Address City/State/Zipcode Phone Number [facility] [address] [place] [address] after 05/26/2018 Insurance Type Payer Benefit Subscriber ID Effective Phone Address Plan / Dates Group PPO BCBS BCBS xxxxxxxxxxxx 2012- CHOICE Present PPO/MARGARET ANDREWS PPO Advance Directives For more information, please contact: [phone] Patient Guest Experience Manager Explanation Type Date Recorded Advance Directives, Living Will and Medical Power of Addictions Counselor
--- OUTSIDE RECORDS SUMMARY | 2019-05-27 07:08 | XMS REPORT ---
Author Author [facility] Address Unknown Phone Unavailable Care Team Providers Care Knitter Helper Name Role Phone JOVANY MEJIA Unavailable Unavailable Problems This patient has no known problems. Allergies, Adverse Reactions, Alerts This patient has no known allergies or adverse reactions. Medications This patient has no known medications. Results Test Description Test Time Test Comments Text Results Atomic Results Result Comments CHEST 2 VIEWS 2019-05-25 13:43:00 [place] [address] Patient Name: ZAKI MOSQUERA MR #: [id number] : 1950 Age/Sex: 68/M Req #: [id number] Adm Physician: Ordered by: JOVANY MEJIA MD Report #: [id number] Location: OR Room/Bed: Procedure: [id number] DX/CHEST 2 VIEWS Exam Date: Exam Time: REPORT STATUS: Signed EXAM: CHEST 2 VIEWS DATE: 05/25/2019 12:43 PM INDICATION: C ervicalgia, preoperative evaluation COMPARISON: None FINDINGS: The trachea is midline. The lungs are symmetrically expanded without evidence for focal consolidation, pneumothorax, or significant pleural effusion. The cardiac silhouette is at the upper limits of normal for size. Mediastinal contours are unremarkable. No acute osseous abnormalities identified. The soft tissues are unremarkable. IMPRESSION: No acute cardiopulmonary process identified. Signed by: Dr. Jacky Caruso MD on 05/25/2019 1:43 PM Dictated By: JACKY CARUSO MD [id number] Transcribed By: SAIDA on 05/25/19 1343 COPY TO: JOVANY MEJIA MD
[2019-05-27] MEDS ORDERED: IBUPROFEN 800MG/ 250ML 250 ML IV ONE (07:23)
[2019-05-27] MEDS ORDERED: LIDOCAINE HCL (LTA) 4 ML SOLN ONE (07:23)
[2019-05-27] MEDS ORDERED: ACETAMINOPHEN 1000 MG/100 ML 100 ML IV ONE (07:23)
[2019-05-27] MEDS ORDERED: CEFAZOLIN SOD 1 GM/NS 50ML 100 ML IV ONE (07:55)
[2019-05-27] MEDS ORDERED: BUPIVACAINE HCL 0.5% INJ 30 ML VIAL INJ ONE (09:43)
--- OUTSIDE RECORDS SUMMARY | 2019-05-27 10:41 | XMS REPORT | Clinical Summary ---
Author Author [facility] Address Unknown Phone Unavailable Care Team Providers Care Internet Project Manager Name Role Phone Alexandra Worrell MD PCP [...] mouth daily. 04/07/2019 Discontinued fluocinolone-skin Apply 0 topaq67-aucq 0.01 % kit topically. 08/31/2018 Discontinued (Reorder) [...] flairs on his L foot. Saw a repairer auto clocks--got injections, NSAIDS, special ointments including lidocaine, until [...] an appointment with a pulmonary doctor in [place] Posterior vitreous detachment 08/09/2014 IFG (impaired fasting [...] Urea as well CAD (coronary artery disease), chickahominy indian tribe coronary artery 06/26/2010 Overview: Overview: S/P NV with 2.5 mm BMS to OM in 2000. Pure hypertriglyceridemia 06/26/2010 Bilateral carpal tunnel syndrome Resolved Problems Problem Noted Date Resolved Date H/O acute myocardial infarction 03/29/2019 04/07/2019 SOB (shortness of breath) 02/09/2019 04/07/2019 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 02/09/2019 04/07/2019 Overview: Added automatically from request for surgery [id number] Encounters Care Team Description Date Type Specialty [...] (obstructive sleep apnea); Coronary artery disease involving chickahominy indian tribe coronary artery of chickahominy indian tribe heart without angina pectoris; Prostate cancer screening; Pure hypertriglyceridemia; Numbness and tingling; Neck pain 04/07/2019 Office Visit Internal Medicine Mlies Martinez MD Coronary artery disease involving chick[place]ominy indian tribe coronary artery of chickahominy indian tribe heart without angina pectoris (Primary Dx); Stented coronary artery; H/O acute myocardial infarction 03/29/2019 Office Visit Cardiology Miles Martinez MD Med Refill 03/26/2019 Refill Cardiology Miles Martinez MD Med Refill 02/27/2019 Refill Cardiology Nae Pena MA Med Refill 02/26/2019 Refill Cardiology Nae Pena MA Med Refill 02/26/2019 Refill Cardiology Alexandra Worrell MD 02/26/2019 Telephone Family Medicine Miles Martinez MD Selective coronary angiography [[id number] (CPT)] 02/25/2019 Surgery Procedural Cardiology Miles Martinez MD 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, unspecified vessel or lesion type (HCC); SOB (shortness of breath) 02/25/2019 Hospital Procedural Cardiology Encounter Miles Martinez MD 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, unspecified vessel or lesion type (HCC); SOB (shortness of breath) 02/23/2019 Lab Lab Miles Martinez MD 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, unspecified vessel or lesion type (HCC); SOB (shortness of breath) 02/17/2019 Lab Lab Miles Martinez MD Coronary artery disease involving chickahominy indian tribe coronary artery of chickahominy indian tribe heart without angina pectoris (Primary Dx); Essential hypertension; SOB (shortness of breath); Stented coronary artery; H/O acute myocardial infarction 02/09/2019 Office Visit Cardiology Nae Pena MA 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, unspecified vessel or lesion type (HCC) (Primary Dx); SOB (shortness of breath) 02/09/2019 Orders Only Cardiology Miles Martinez MD Med Refill 02/06/2019 Refill Cardiology Nae Pena MA Med Refill 11/30/2018 Refill Cardiology Miles Martinez MD Med Refill 11/28/2018 Refill Cardiology Miles Martinez MD Med Refill 11/11/2018 Refill Cardiology Miles Martinez MD Med Refill 11/09/2018 Refill Cardiology Miles Martinez MD Med Refill 08/31/2018 Refill Cardiology Miles Maritnez MD Med Refill 08/27/2018 Refill Cardiology Miles [...] Description Date Type Specialty Miles Martinez MD [address] [address] 09/13/2019 Office Visit Cardiology Health [...] artery disease ANGIOGRAPHY 3:30 PM CDT involving 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, unspecified vessel or lesion type (HCC) SOB (shortness of breath) CBC WITH PLATELET AND Routine 02/23/2019 Coronary artery disease DIFFERENTIAL 4:56 PM CDT involving 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, unspecified vessel or lesion type (HCC) SOB (shortness of breath) PROTHROMBIN TIME WITH INR Routine 02/23/2019 Coronary artery disease 4:56 PM CDT involving 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, unspecified vessel or lesion type (HCC) SOB (shortness of breath) COMPREHENSIVE METABOLIC Routine 02/23/2019 Coronary artery disease PANEL 4:56 PM CDT involving 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, unspecified vessel or lesion type (HCC) SOB (shortness of breath) ECHOCARDIOGRAM 2D Routine 02/17/2019 Coronary artery disease COMPLETE W MMODE SPECTRAL 4:59 PM CDT involving chickahominy indian tribe coronary COLOR DOPPLER (67121) artery of chickahominy indian tribe heart without angina pectoris SOB (shortness of breath) ECG 12-LEAD Routine 02/09/2019 Coronary artery disease 8:46 AM CDT involving chick[place]ominy indian tribe coronary artery of chickahominy indian tribe heart without angina pectoris Essential hypertension SOB [...] however no significant spinal canal stenosis identified. [facility]-[id number] Procedure Note Hm Interface, Radiology Results - [...] however no significant spinal canal stenosis identified. [facility]-[id number] Performing Organization Address City/State/Zipcode Phone Number [facility] [address] [place] [address] * EMG general request (04/14/2019 1:12 PM [...] Akbar M.D. Jasper Bautista Department of Neurology [facility] [address] [place], [place] [id number] Office: [phone] Narrative Performed At NERVE CONDUCTION AND ELECTROMYOGRAPHY REPORT [facility]th Floor; [place], [place] [address]; Name: Maurizio Mosquera Date of Procedure: 04/14/19 [...] Left Median Digital 3.5 9 13.0 Left Knjhwlaerwm35.0 Left Super. Radial 2.3 27 10.0 Electromyography [...] the oblique views at C5-6 and C6-7. [facility]-[id number] Procedure Note Hm Interface, Radiology Results Incoming [...] the oblique views at C5-6 and C6-7. [facility]-[id number] Performing Organization Address City/State/Zipcode Phone Number [employer] [address] [place] [address] * TSH reflex to T4 (04/07/2019 12:15 PM CDT) TSH reflex to 1.60 0.40 - 4.50 mIU/L [employer] [place] Specimen Blood Resulting Agency Comment Performing Organization Information: Site ID: [id number] Name: [facility] Address: [address] [place] [phone] Director: Mikaela Lopez Performing Organization Address City/State/[facility] Hospital[facility] Phone Number [employer] [place] [phone] * CBC with platelet and differential (04/07/2019 12:15 PM CDT) Only the most recent of 2 results within the time period is included. [facility] WBC 5.4 3.8 - 10.8 [facility] Thousand/uL [facility] RBC 4.58 4.20 - 5.80 [facility] Million/uL [facility]ST[facility] [place] HGB 13.3 13.2 - 17.1 g/dL [employer] [facility] [place] HCT 40.8 38.5 - 50.0 % [employer] [facility] [place] MCV 89.1 80.0 - 100.0 fL [employer] [facility] [place] MCH 29.0 27.0 - 33.0 pg [employer] [facility] [place] MCHC 32.6 32.0 - 36.0 g/dL [employer] [place] RDW 13.5 11.0 - 15.0 % [employer] [place] Platelet count 163 140 - 400 [facility] Thousand/uL [facility] MPV 10.9 7.5 - 12.5 fL [employer] [place] Neutrophils, 3,310 1,500 - 7,800 [facility] absolute cells/uL [facility] [place] Lymphocytes, 1,388 850 - 3,900 cells/uL [facility] absolute [facility] [place] Monocytes, 464 200 - 950 cells/uL [facility] absolute [facility] [place] Eosinophils, 200 15 - 500 cells/uL [facility] absolute [facility] [place] Basophils, 38 0 - 200 cells/uL [facility] absolute [facility]ICS [place] Neutrophils 61.3 % [facility] [place] Lymphocytes 25.7 % [facility] [place] Monocytes 8.6 % [facility] [place] Eosinophils 3.7 % [facility] [place] Basophils + RC 0.7 % [facility] [place] Specimen Blood Resulting Agency Comment Performing Organization Information: Site ID: [id number] Name: [facility] Address: [address] [place] [address] Director: Mikaela Lopez Performing Organization Address [facility] Phone Number [facility] [place] [address] * Prostate specific antigen (04/07/2019 12:15 PM CDT) Pathologist [facility] PSA 1.8 < OR=4.0 ng/mL [facility] Comment: DIAGNOSTICS The total PSA value from this [place] assay system is standardized against the WHO [...] Performing Organization Information: Site ID: [id number] Name: [facility] Address: [address] [place] [phone] Director: Mikaela Lopez Performing Organization Address [facility] Phone Number [facility] [place] [address] * Hemoglobin A1c (04/07/2019 12:15 PM CDT) Pathologist [facility] Hemoglobin A1C 5.5 <5.7 % of total Hgb [facility] Comment: DIAGNOSTICS For the purpose of screening [place] for the presence of diabetes: <5.7% Consistent with the absence of diabetes 5.7-6.4%Consistent with increased risk for diabetes (predi abetes) > or=6.5%Consistent with diabetes This assay result is consistent with a decreased risk of diabetes. Currently, no consensus exists regarding use of hemoglobin A1c for diagnosis of diabetes in children. According to [place] Diabetes Association (ADA) guidelines, hemoglobin A1c <7.0% represents optimal control in non- diabetic patients. Different metrics may apply to specific patient populations. Standards of Medical Care in Diabetes(ADA). Specimen Blood Resulting Agency Comment Performing Organization Information: Site ID: [facility] Name: [facility] Address: [address] [place] [phone] Director: Mikaeal Lopez Performing Organization Address City/[facility] [place] [address] * Creatinine level (04/07/2019 12:15 PM CDT) Creatinine 0.80 0.70 - 1.18 mg/dL [facility] Comment: DIAGNOSTICS For patients >49 years of age, [place] the reference limit for Creatinine is approximately 13% higher for people identified as -Australian. EGFR Non-Afr. 91 > OR=60 [facility] [place] mL/min/1.73m2 [facility] EGFR 105 > OR=60 [facility] [place] mL/min/1.73m2 [facility] Specimen Blood Resulting Agency Comment Performing Organization Information: Site ID: [facility] Name: [facility] Address: [address] [place] [phone] Director: Mikaela Lopez Performing Organization Address [facility] [place] [address] * Lipid panel (04/07/2019 12:15 PM CDT) Cholesterol, 126 <200 mg/dL [facility] total [facility] HDL cholesterol 34 (L) >40 mg/dL [facility] [place] Triglycerides 139 <150 mg/dL [facility] LDL cholesterol 70 mg/dL (calc) [facility] calculated Comment: DIAGNOSTICS Reference range: <100 [place] Desirable range <100 mg/dL for primary prevention; <70 mg/dL for patients with CHD or diabetic patients with > or=2 CHD risk factors. LDL-C is now calculated using the Mabel calculation, which is a validated novel method providing better accuracy than the Friedewald equation in the estimation of LDL-C. Yovani DAVID et al. ARMANDO. 2013;310(19): 1213-1894 (http://education.Babelway.GoodData/faq/JFQ867) Cholesterol/HDL 3.7 <5.0 (calc) [employer] [place] Non-HDL 92 <130 mg/dL (calc) [facility] cholesterol Comment: DIAGNOSTICS For patients with diabetes [place] plus 1 major ASCVD risk factor, treating to a non-HDL-C goal of <100 mg/dL (LDL-C of <70 mg/dL) is considered a therapeutic option. Specimen Blood Resulting Agency Comment Performing Organization Information: Site ID: RGA Name: [facility] Address: [address] [place] [phone] Director: Mikaela Lopez Performing Organization Address City/State/[facility] Hospital[facility] Phone Number [employer] [place] [phone] [place] [address] * Cv blood and plasma laboratory assistant procedure (02/25/2019 3:30 PM CDT) Specimen Narrative Performed At [employer] [facility] SELECTIVE CORONARY ANGIOGRAPHY Attending: Dr. Miles Martinez Fellow: Dr. Gage Hurt EQUIPMENT/ANTICOAGULATION: Right Common Femoral Artery 4Fr Arterial Sheath JL4 and 3DRC Diagnostic Catheter PROCEDURAL DETAILS: Moderate conscious sedation was administered from 3:16pm to 3:30pm for a total of 14min.The patient s right groin was prepped and draped in sterile fashion. The site was anesthetized with lidocaine.The right CREATIVE SERVICES COORDINATOR was cannulated with a needle, and a 4Fr arterial sheath was placed over the wire into the femoral artery. JL4 and then 3DRC diagnostic catheters were introduced into the sheath and appropriate angiographic views were obtained of the [place] tribe left and right coronary arteries.The diagnostic catheter was then removed and the sheath was capped and flushed. HEMOSTASIS: Manual Pressure PLAN: 1. Continue ASA 81mg daily 2. Continue cardiomyopathy medications (ACEi/BB) 3. Continue cardiac medical therapy and aggressive risk factor modification 4. Starting lasix 20mg PO qD and KCl 10 mEq PO qD Performing Organization Address City/State/Zipcode Phone Number [employer] [address] [place] [address] * Prothrombin time with INR (02/23/2019 4:56 PM CDT) INR 1.1 [facility] Comment: DI[facility]NOSTICS Reference [place] Range 0.9-1.1 Moderate-intensity Warfarin Therapy 2.0-3.0 Higher-intensity Warfarin Therapy 3.0-4.0 Prothrombin 11.3 9.0 - 11.5 sec [facility] time Comment: DIAGNOSTICS For more information on this [place] test, go to: http://education.Wander.com/faq/CZE011 Specimen Blood Resulting Agency Comment Performing Organization Information: Site ID: RGA Name: [facility] Address: [address] [place] [phone] Director: Mikaela Lopez Performing Organization Address City/State/Zipcode Phone Number [facility] [employer] [place] [address] [place] [phone] * Comprehensive metabolic panel (02/23/2019 4:56 PM CDT) [facility] Glucose 82 65 - 99 mg/dL [facility] Comment: DIAGNOSTICS Fasting [place] reference interval BUN, whole 17 7 - 25 mg/dL [facility] blood [facility]AGNOSTICS [place] Creatinine 0.92 0.70 - 1.18 mg/dL [facility] Comment: DIAGNOSTICS For patients >49 years of age, [place] the reference limit for Creatinine is approximately 13% higher for people identified as -Australian. EGFR Non-Afr. 84 > OR=60 [facility] [place] mL/min/1.73m2 [facility] [place] EGFR 97 > OR=60 [facility] [place] mL/min/1.73m2 [facility] [place] BUN/creatinine NOT APPLICABLE 6 - 22 (calc) [facility] ratio [facility]STICS [place] Sodium 141 135 - 146 mmol/L [facility] [place] Potassium 4.5 3.5 - 5.3 mmol/L [facility] [place] Chloride 106 98 - 110 mmol/L [facility] [place] CO2 28 20 - 32 mmol/L [facility] [place] Calcium 9.1 8.6 - 10.3 mg/dL [facility] [place] Protein 6.8 6.1 - 8.1 g/dL [facility] [place] Albumin, S 4.4 3.6 - 5.1 g/dL [facility] [place] Globulin, total 2.4 1.9 - 3.7 g/dL [facility] (calc) DIAGNOSTICS [place] Albumin/globuli 1.8 1.0 - 2.5 (calc) [facility] n ratio DIAGNOSTICS [place] Total bilirubin 0.5 0.2 - 1.2 mg/dL [facility] [place] Alkaline 51 40 - 115 U/L [facility] phosphatase [facility]STICS [place] AST 20 10 - 35 U/L [facility] [place] ALT 23 9 - 46 U/L [employer] [place] Specimen Blood Resulting Agency Comment Performing Organization Information: Site ID: RGA Name: [facility] Address: [address] [place] [address] Director: Mikaela Lopez Performing Organization Address City/State/Zipcode Phone Number SUSIE WIS[facility] [place] [address] [place], [place] [phone] * Echocardiogram complete w contrast and 3D if needed (02/17/2019 4:59 PM CDT) Specimen Narrative [facility]formed At [facility] E[facility] Report Pat.Name:MAURIZIO MOSQUERA Pat.ID:[id number] St.Date: 02/17/2019 Refer.MD:MILES MARTINEZ MD Exam Time: 4:07:00 PMStudy Type:Routine Echo Height:66inWeight:200lb BSA: 2 c9LWZRcq:1950,68Y Sex: MALEBP:139/59 HR:55 bpm Sonogrphr: PATRICIA Nova FASE Pat. Stat.:OutpatientRoom:[place] Study Status:Final Echo Event ID:[id number] Order ID:[id number] Reason for Study:SOB, suspected cardiac etiology Procedures:2D Echo, Colorflow Doppler Race:C SUMMARY: LV size is uhglkywu-bz-pqjpgqzh enlarged. Overall wall motion is mildly hypokinetic. EF=47%. Mild mitral regurgitation. Diastolic dysfunction Grade I (Mild): Impaired relaxation with normal LV filling pressures. Estimated PA systolic pressure is 32 mmHg, assuming a mean RAP of 5 mmHg. FINDINGS: LV: LV size is cihdpjsj-yg-fpafsscr enlarged. LV EF is mildly depressed.Overall wall [...] RAPof 5 mmHg. MEASUREMENTS: 2D Parasternal [place] LVOT 2.4 cmLA Ds4.8 cm LVIDd6.6 cmIndex3.3 cm/m Ao An2.4 cm LVIDs5.1 cmAo Rtd 4 cm Index2 cm/m LV%fs 22.9 % LV Qdzv813.7 g(122-174) IVSd 1.1 cmRWT0.2 LVPWd0.7 cm LV EF SinglePlane LV Ad 48.7 cm2(9.5-22.3) EDFEL835.6 ml Index56.3 ml/m RWVVD863.8 ml (65-193) Nvttz459.4 ml/m LV SV 98.2 ml LV As [...] Results In - 02/18/2019 5:59 PM CDT [facility] Echocardiography Report Pat.Name: MAURIZIO MOSQUERA Pat.ID: [id number] St.Date: 02/17/2019 Refer.MD: MILES MARTINEZ MD Exam Time: 4:07:00 PM Study Type:Routine Echo Height: 66in Weight: 200lb BSA: 2 m2 Age: 8 1950,68Y Sex: MALE BP: 139/59 HR: 55 bpm Sonogrphr: PATRICIA Nova FASE Pat. Stat.:Outpatient Room: [place] Study Status:Final Echo Event ID:[id number] Order ID: [id number] Reason for Study:SOB, suspected cardiac etiology Procedures:2D Echo, Colorflow Doppler Race: C SUMMARY: LV size is cgpajzga-me-awykjyha enlarged. Overall wall motion is mildly hypokinetic. EF=47%. Mild mitral regurgitation. Diastolic dysfunction Grade I (Mild): Impaired relaxation with normal LV filling pressures. Estimated PA systolic pressure is 32 mmHg, assuming a mean RAP of 5 mmHg. FINDINGS: LV: LV size is rozwkldq-gr-osvlicyx enlarged. LV EF is mildly depressed. Overall [...] of 5 mmHg. MEASUREMENTS: 2D Parasternal [place] LVOT 2.4 cm LA Ds 4.8 cm [...] Address City/State/Zipcode Phone Number [facility] [address] [place] [address] * ECG 12 lead (02/09/2019 8:46 AM CDT) Ventricular 52 [facility] rate Atrial rate 52 [facility] GA interval 160 [facility] M[facility] QRSD interval 98 [...] At Performing Organization Address City/State/Zipcode Phone Number [facility] [address] [place] [address] after 05/26/2018 Insurance Type Payer Benefit Subscriber ID Effective Phone Address Plan / Dates Group PPO BCBS BCBS xxxxxxxxxxxx 2012- CHOICE Present PPO/MARGARET ANDREWS PPO Advance Directives For more information, please contact: [phone] 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
[2019-05-27] MEDS ORDERED: HYDROMORPHONE 2MG/ML 2 MG/ML ML IV PRN (10:45)
[2019-05-27] MEDS ORDERED: ACETAMINOPHEN 325 MG TAB PO PRN (10:45)
[2019-05-27] MEDS ORDERED: CEPACOL SORE THROAT LOZENGES PO PRN (10:45)
[2019-05-27] MEDS ORDERED: MAGNESIUM/ALUMINUM/SIMETHICONE 30 ML UDC PO PRN (10:45)
[2019-05-27] MEDS ORDERED: ONDANSETRON HCL INJ 2MG/ML 2ML 2 MG/ML VIAL IV PRN (10:45)
[2019-05-27] MEDS ORDERED: ZOLPIDEM TARTRATE 5 MG TAB PO PRN (10:45)
[2019-05-27] MEDS ORDERED: CARISOPRODOL 350 MG TAB PO PRN (10:45)
[2019-05-27] MEDS ORDERED: MORPHINE SULFATE 5 MG/ML VIAL IM PRN (10:45)
[2019-05-27] MEDS ORDERED: PROMETHAZINE HCL (IM) 25 MG/ML VIAL IM PRN (10:45)
[2019-05-27] MEDS: FENTANYL CITRATE/PF 100MCG/2 ML INJ ONE ×2 (11:07→16:21)
[2019-05-27] MEDS: LACTATED RINGER'S 1,000 ML IV SCH ×3 (12:14→20:46)
[2019-05-27] MEDS ORDERED: MORPHINE SULFATE INJ 4 MG/ML INJ 1ML IM PRN (12:15)
[2019-05-27 12:25] VITALS: BP 117/75
--- NOTE | 2019-05-27 14:21 | Operative Report ---
DATE OF PROCEDURE: 05/27/2019 SURGEON: Surendra Preciado MD PREOPERATIVE DIAGNOSES: 1. C6-C7 spondylosis with radiculopathy, M50.123. 2. Left carpal tunnel syndrome. POSTOPERATIVE DIAGNOSES: 1. C6-C7 spondylosis with radiculopathy, M50.123. 2. Left carpal tunnel syndrome. PROCEDURES: 1. C6-C7 anterior cervical diskectomy and microsurgical osteophyte resection and allograft fusion, 33362. 2. Preparation of MTF corticocancellous allograft, 35951. 3. C6-C7 anterior cervical plating with Synthes ZPN plate, 60090. 4. Left carpal tunnel release. ANESTHESIA: General. INDICATIONS: The patient is a 68-year-old man, who presents with C6-C7 spondylosis with left C7 radiculopathy with superimposed left carpal tunnel syndrome. He was taken to the operating room for simultaneous treatment of both diagnoses. PROCEDURE IN DETAIL: After induction of general anesthesia, the patient was placed on the operating table in supine position. The right side of neck was prepped and draped in sterile fashion. The fluoroscopic C-arm was positioned in cross-table lateral orientation. A transverse incision was created on the right side of neck, superimposed on the C6-C7 disk space as determined by fluoroscopy. The platysma was divided in line with the incision. A subplatysmal dissection was carried out and avascular plane of dissection was developed medial to the sternocleidomastoid muscle and was followed medial to the carotid sheath to the anterior border of the cervical spine. The deep cervical fascia was opened. The esophagus was retracted to the left. The attachments of longus colli muscles to the anterolateral aspects of vertebral bodies of C6 and C7 were divided. The anterior longitudinal ligament was resected. [place] posts were inserted into C6 and C7 and the [place] distractor was used to distract the disk space. Anterior annulus of the disk was incised with a #11 blade. The contents of the disks were thoroughly evacuated with angled curettes and pituitary rongeurs. The posterior osteophytes were meticulously drilled with a 2 mm cutting bur on a high-speed drill until they were completely removed. The posterior annulus of the disk, herniated disk material, and the posterior longitudinal ligament were resected layer by layer until the dura was fully exposed and decompressed. The medial aspect of the uncinate processes was resected bilaterally with particular attention given to the left hypertrophic uncinate process until the origin of the C7 nerve roots was exposed and decompressed bilaterally. After satisfactory decompression had been achieved, the endplates were prepared for fusion. A piece of MTF corticocancellous allograft measuring 8 mm in thickness was selected and prepared in saline and loaded onto a Synthes ZPN plate. The construct was inserted into the C6-C7 disk space under distraction and fluoroscopic guidance. The distraction was released and distraction posts were removed. The plate was screwed to the endplates of C6 and C7 with two pairs of 14 mm screws. All screws were locked and excellent construct was obtained. The wound was copiously irrigated with bacitracin solution. Meticulous hemostasis was secured. Retraction was removed. The platysma was closed with 3-0 Vicryl sutures. The skin was closed with 4-0 Monocryl suture in subcuticular fashion. Steri-Strips and dressing were applied. The drapes were removed. The left arm was abducted over a hand table. The left hand, wrist, and forearm were prepped and draped in sterile fashion. The tourniquet was inflated over the upper arm to 250 mmHg. A small midline incision was created over the median palmar crease of the hand just distal to the distal flexor crease of the wrist. The subcutaneous fat was divided. The transverse carpal ligament was incised with a #15 C blade until the underlying median nerve came into view. As the machine assistant retracted the skin edges, the transverse carpal ligament was divided proximally and distally until the full length of the median nerve was exposed and decompressed within the carpal tunnel. The point of maximal decompression of the nerve appeared to be 2 cm distal to the distal flexor crease of the wrist, where the ligament was at its thickest. More distally, the recurrent motor branch of the nerve was preserved within this fat pad. The wound was irrigated with bacitracin solution, meticulous hemostasis was secured. Retractor was removed. The subcutaneous layer was closed with 3-0 Vicryl suture. The skin was closed with 3-0 nylon suture in a horizontal mattress fashion. A dressing was applied. The patient was awakened, extubated, and taken to postanesthesia care unit in stable condition. No intraoperative complications were encountered. Estimated blood loss was 20 mL. MD ELVIS Canchola /[id number]
[2019-05-27] MEDS: CEFAZOLIN SOD 1 GM/NS 50ML 50 ML IV SCH ×2 (14:56→20:46)
[2019-05-27 16:00] VITALS: BP 121/73
[2019-05-27] MEDS ORDERED: DOXYCYCLINE HYCLATE TABLET 100 MG TAB PO SCH (17:00)
[2019-05-27] MEDS ORDERED: NEOSTIGMINE 5 MG/5ML SYR ONE (18:47)
[2019-05-27] MEDS ORDERED: PROPOFOL IV EMULSION 10 MG/ML 20 ML VIAL ONE (18:47)
[2019-05-27] MEDS ORDERED: LIDOCAINE HCL 2% JELLY 5 ML TUBE ONE (18:47)
[2019-05-27] MEDS ORDERED: LIDOCAINE HCL 2% LOCAL INJ 5 ML SDV VIAL INJ ONE (18:47)
[2019-05-27] MEDS ORDERED: ROCURONIUM BROMIDE 10 MG/ML 5ML VIAL ONE (18:47)
[2019-05-27] MEDS ORDERED: SEVOFLURANE INHAL SOLN 250 ML PEN BTL ONE (18:47)
[2019-05-27] MEDS ORDERED: DEXAMETHASONE SOD PHOS INJ 4 MG/ML VIAL ONE (18:47)
[2019-05-27] MEDS ORDERED: ONDANSETRON HCL INJ 2MG/ML 2ML 2 MG/ML VIAL ONE (18:47)
[2019-05-27] MEDS ORDERED: GLYCOPYRROLATE INJ 1MG/ 5 ML SYR ONE (18:47)
[2019-05-27] MEDS ORDERED: FENTANYL CITRATE/PF 100MCG/2 ML INJ ONE (18:58)
[2019-05-27] MEDS ORDERED: MIDAZOLAM HCL 2 MG/2 ML VIAL ONE (18:58)
[2019-05-27 19:30] VITALS: BP 116/75
[2019-05-27] MEDS ORDERED: ATORVASTATIN 20 MG TAB PO SCH (21:00)
[2019-05-27] MEDS ORDERED: ATORVASTATIN 40 MG TAB PO SCH (21:00)
[2019-05-28] MEDS: OXYCODONE/ACETAMINOPHEN 5-325 1 EACH TABLET PO PRN ×2 (03:32→09:04)
[2019-05-28 04:12] VITALS: BP 89/55
[2019-05-28] MEDS: CEFAZOLIN SOD 1 GM/NS 50ML 50 ML IV SCH (05:08)
[2019-05-28 08:00] VITALS: BP 98/49
--- NOTE | 2019-05-28 08:48 | Diagnostic Imaging Report ---
Cervical spine, 2 views. History: Postop. Discussion: The cervical spine is visualized on the lateral view from C1 through the top of C7. Anterior fusion hardware is noted at C6-C7 in normal alignment. There is no evidence of fracture, subluxation, or posterior splaying. There is mild disc space narrowing from C4 through C6. The prevertebral soft tissues are within normal limits. IMPRESSION: Status post C6-C7 anterior fusion in anatomic alignment. Signed by: Darrick Chambers on 05/28/2019 8:45 AM
[2019-05-28] MEDS ORDERED: METOPROLOL SUCCINATE 25 MG TAB XL PO SCH (09:00)
[2019-05-28] MEDS ORDERED: LISINOPRIL 2.5 MG TAB PO SCH (09:00)
[2019-05-28] MEDS ORDERED: DOXYCYCLINE 20 MG PO SCH (09:00)
[2019-05-28] MEDS ORDERED: NORCO 7.5-3251 EACH PO (10:30)
== END 2019-05-28 11:12 | disposition home or self-care (01) ==
LOC: OR 07:06 → PACU V 10:34 → IMCU 12:00
PROVIDERS: ADMIT Neurological Surgery; ATTEND Neurological Surgery
DX: M50.123 Cervical disc disorder at C6-C7 level with radiculopathy (principal); M47.22 Other spondylosis with radiculopathy, cervical region; Z79.02 Long term (current) use of antithrombotics/antiplatelets; Z79.82 Long term (current) use of aspirin
CPT/HCPCS: 20931; 22551; 22845; 36415; 64721; 71046; 72040; 80048; 85025; 85610; 85730; 86850; 86900; 88304; 93005; C9359; G0378 ×2; J0131; J0690 ×2; J1100; J1170; J2001 ×2; J2250; J2405; J2704; J3010; J3490; J7121; 77003

== ENCOUNTER → 2019-06-24 | Outpatient (CLI) | payer BC ==
[~2019-06-24] MED LIST changes: -BACITRACIN 50,000 UNIT VIAL ONE; -BUPIVACAINE 0.5%/EPI 30 ML SDV INJ ONE; +NORCO 7.5-3251 EACH PO; -THROMBIN FOR SOLN 5,000 UNIT VIAL ONE
--- NOTE | 2019-06-24 08:58 | Diagnostic Imaging Report ---
EXAMINATION: SPINE CERVICAL AP LAT FLEX EXT INDICATION: Postoperative COMPARISON: Cervical spine radiograph of 05/28/2019 FINDINGS: AP, lateral, flexion and extension views of the cervical spine were obtained. The patient is status post anterior cervical fusion at C6-7. Alignment is anatomic and remains unchanged on flexion and extension radiographs. No acute fracture. Vertebral body heights are unchanged. Hardware appears intact. The prevertebral soft tissues are normal in thickness. IMPRESSION: Unchanged alignment status post anterior cervical fusion at C6-7. Signed by: Leon Shea MD on 06/24/2019 8:54 AM
== END ==
LOC: RAD 07:57
PROVIDERS: ATTEND Neurological Surgery
DX: M50.20 Other cervical disc displacement, unspecified cervical region (principal); M43.22 Fusion of spine, cervical region
CPT/HCPCS: 72050

== ENCOUNTER → 2019-12-13 | Outpatient (CLI) | payer MEDICARE ==
--- NOTE | 2019-12-13 12:09 | Diagnostic Imaging Report ---
EXAMINATION: C-SPINE COMP. W/FLEX EXT INDICATION: Postoperative COMPARISON: Cervical spine radiographs 06/24/2019 FINDINGS: AP, lateral, oblique and odontoid images of the cervical spine were acquired. Status post anterior cervical discectomy and fusion at C6-7. Compared to the prior study of 06/24/2019, the left superior screw of the hardware complex has backed out by approximately 9 mm. Alignment remains essentially unchanged and appears stable on the true, flexion and extension views. The prevertebral soft tissues are unchanged in thickness. Mild multilevel degenerative changes as before. IMPRESSION: Interval backing out of the left superior screw of the cervical fusion complex at C6-7. Alignment remains unchanged. The above findings were discussed with Dr. Preciado on 12/13/2019 11:06 AM, who responded indicating that the communication was understood. Signed by: Leon Shea MD on 12/13/2019 12:07 PM
== END ==
LOC: RAD 09:46
PROVIDERS: ATTEND Neurological Surgery
DX: R07.0 Pain in throat (principal); M43.22 Fusion of spine, cervical region
CPT/HCPCS: 72052

== ENCOUNTER → 2019-12-15 | Outpatient (CLI) | payer MEDICARE ==
[2019-12-15 12:45] LABS: BASOPHILS % 0.7 % (0.0-1.0); EOSINOPHILS # (AUTO) 0.4 (0.0-0.4); HEMATOCRIT 43.5 % (38.2-49.6); HEMOGLOBIN 14.1 g/dL (14.0-18.0); LYMPHOCYTES # (AUTO) 1.8 (1.0-3.2); LYMPHOCYTES % 29.1 % (18.0-39.1); MEAN CORPUSCULAR HGB CONC 32.4 g/dL (31-35); MEAN CORPUSCULAR VOLUME 89.3 fL (81-99); MONOCYTES # (AUTO) 0.6 (0.2-0.8); MONOCYTES % 10.6 % (4.4-11.3); NEUTROPHILS # (AUTO) 3.2 (2.1-6.9); NEUTROPHILS % 53.1 % (38.7-80.0); PLATELET COUNT 169 x10e3/uL (140-360); RED BLOOD COUNT 4.87 x10e6/uL (4.3-5.7); RED CELL DISTRIBUTION WIDTH 13.9 % (11.7-14.4)
[2019-12-15 13:04] LABS: ANION GAP 11.4 mmol/L (8-16); BLOOD UREA NITROGEN 11 mg/dL (7-26); BUN/CREATININE RATIO 14 (6-25); CALCIUM 9.1 mg/dL (8.4-10.2); CARBON DIOXIDE 25 mmol/L (22-29); CHLORIDE 107 mmol/L (98-107); CREATININE, SERUM 0.79 mg/dL (0.72-1.25); EST GLOMERULAR FILTRATION RATE > 60 ML/MIN (60-); GLUCOSE 95 mg/dL (74-118); POTASSIUM 4.4 mmol/L (3.5-5.1); SODIUM 139 mmol/L (136-145)
[2019-12-15 13:09] LABS: INR 0.99; PROTHROMBIN TIME 13.7 seconds (11.9-14.5)
[2019-12-15 13:10] LABS: PARTIAL THROMBOPLASTIN TIME 22.5 seconds (23.8-35.5)
--- NOTE | 2019-12-15 13:48 | Diagnostic Imaging Report ---
EXAMINATION: CHEST 2 VIEWS INDICATION: Pre-operative COMPARISON: None FINDINGS: LINES/TUBES:None LUNGS:The lungs are well-inflated. No focal consolidation or pulmonary edema. PLEURA:No pleural effusion or pneumothorax. MEDIASTINUM:The cardiomediastinal silhouette appears normal in size and shape. Atherosclerotic calcifications of the thoracic aorta. BONES/SOFT TISSUES:No acute osseous injury. Cervical spine fusion hardware. ABDOMEN:No free air under the diaphragm. IMPRESSION: No focal pneumonia or pulmonary edema. Signed by: Leon Shea MD on 12/15/2019 1:45 PM
== END ==
LOC: RAD 05:00 → EDSTATUS 12-16 09:30
PROVIDERS: ATTEND Neurological Surgery
DX: Z01.818 Encounter for other preprocedural examination (principal); T84.226A Displacement of internal fixation device of vertebrae, initial encounter; Z53.8 Procedure and treatment not carried out for other reasons
CPT/HCPCS: 36415; 71046; 80048; 85025; 85610; 85730; 86850; 86900; 93005

== ENCOUNTER → 2019-12-15 | Outpatient (CLI) | payer MEDICARE ==
--- NOTE | 2019-12-15 17:49 | Diagnostic Imaging Report ---
History: Prior anterior cervical discectomy, cervical disc disease order at C6-C7 with radiculopathy. Comparison studies: Cervical spine x-ray 12/13/2019. Technique: Axial images were obtained through the cervical region. Coronal and sagittal images reconstructed from the axial data. Intravenous contrast: None Findings: Atlantoaxial articulation: Intact Alignment: Straightening of the usual cervical lordotic curvature. Cervicomedullary junction: No abnormalities. Patent foramen magnum. Soft tissues: No gross abnormalities. Vertebrae: No fracture, infection or neoplasm. Postsurgical changes with anterior cervical discectomy and fusion (ACDF) at C6-C7. The more superior fixation screw on the left which extends to the left inferior C6 endplate is no oral flush with the anterior fusion plate and indents the prevertebral soft soft tissues and pharyngoesophageal junction. Degenerative changes: C2-C3: Patent canal and foramina. C3-C4: Patent canal and foramina. C4-C5: Moderate left facet arthrosis without stenotic and foraminal stenosis. Patent canal and right foramen. C5-C6: Moderate left foraminal stenosis due to uncovertebral arthrosis and severe left facet arthrosis mild right facet arthrosis. No significant left foraminal stenosis. C6-C7: Few surgical level. Moderate bilateral foraminal stenosis due to uncovertebral arthrosis. Artifact from fusion hardware limits evaluation of the canal. No gross canal stenosis. C7-T1: Mildly degenerated disc. Moderate right foraminal stenosis due to uncovertebral arthrosis. Patent canal and left foramen. IMPRESSION: 1. Prior C6-C7 ACDF with evidence of screw loosening; left superior fixation screw does not lie flush with the fixation plate and indents the prevertebral soft tissues and pharyngoesophageal junction. 2. Moderate degenerative foraminal stenosis on the left at C5-C6, bilaterally at C6-C7 and on the right at C7-T1. 3. Multilevel facet arthrosis, worse/severe on the left at C5-C6. Signed by: Dr. Manuel Gallegos M.D. on 12/15/2019 5:46 PM
== END ==
LOC: CT 11:17
PROVIDERS: ATTEND Neurological Surgery
DX: M50.123 Cervical disc disorder at C6-C7 level with radiculopathy (principal); R07.0 Pain in throat
CPT/HCPCS: 72125